=== PATIENT | female | born 1970 | race Caucasian/White ===

== ENCOUNTER 2018-08-02 09:28 | Emergency (ER) | payer MEDICARE, MEDICAID ==
[~2018-08-02] VITALS: Ht 162.6 cm; Wt 125.6 kg
[~2018-08-02 09:28] MED LIST: ALBU8HFA4 IH; ARIP15TA3 PO; BUPR300T52 PO; DULO20CA PO; PANT40TA2 PO; SERT50TA PO
--- NOTE | 2018-08-02 10:05 | NUR ---
47 years old female walking to er c/o right hip pain after falling, had x-ray at [facility], awaiting for ct will continue to monitor
[2018-08-02 10:51] LABS: *URINE HCG, QUAL NEGATIVE (NEGATIVE)
[2018-08-02 11:53] VITALS: BP 140/70
--- NOTE | 2018-08-02 11:54 | NUR ---
patient condition improved d/c home with instructions after care reviewed understood left er ambulatory with steady gait.
== END 2018-08-02 11:57 | disposition home or self-care (01) ==
LOC: ER 09:28
DX: M25.551 Pain in right hip (principal); J45.909 Unspecified asthma, uncomplicated; K21.9 Gastro-esophageal reflux disease without esophagitis; Z79.899 Other long term (current) drug therapy
CPT/HCPCS: 72192; 84703; A4663

== ENCOUNTER 2019-03-04 10:58 | Emergency (ER) | payer MEDICARE, MEDICAID ==
[~2019-03-04] VITALS: Ht 162.6 cm; Wt 140.6 kg
--- NOTE | 2019-03-04 11:46 | NUR ---
Patient discharged to home in stable conditon with brisk steady gait. Written and verbal after care instructions given to patient. Patient verbalized understanding & compliance of instructions.
== END 2019-03-04 11:48 | disposition home or self-care (01) ==
LOC: ER 10:58
DX: G25.3 Myoclonus (principal); G47.69 Other sleep related movement disorders; J44.9 Chronic obstructive pulmonary disease, unspecified; K21.9 Gastro-esophageal reflux disease without esophagitis; F31.9 Bipolar disorder, unspecified; Z88.8 Allergy status to other drugs, medicaments and biological substances; Z79.899 Other long term (current) drug therapy
CPT/HCPCS: A4663

== ENCOUNTER 2019-04-15 08:38 | Emergency (ER) | payer MEDICARE, MEDICAID ==
[~2019-04-15] VITALS: Ht 162.6 cm; Wt 140.6 kg
[2019-04-15] MEDS ORDERED: ALBUTEROL SULFATE 2.5 MG/ 0.5 ML NEBU NEB ONE (09:15)
[2019-04-15] MEDS ORDERED: ALBUTEROL SULFATE 2.5 MG/3 ML NEBU ONE (09:33)
--- NOTE | 2019-04-15 09:50 | NUR ---
Patient discharged to home in stable conditon. Written and verbal after care instructions given. Patient verbalizes understanding of instructions.
[2019-04-15 09:51] VITALS: BP 119/80
== END 2019-04-15 09:56 | disposition home or self-care (01) ==
LOC: ER 08:38
DX: J18.9 Pneumonia, unspecified organism (principal); J44.9 Chronic obstructive pulmonary disease, unspecified; K21.9 Gastro-esophageal reflux disease without esophagitis; F31.9 Bipolar disorder, unspecified; Z88.8 Allergy status to other drugs, medicaments and biological substances; Z79.899 Other long term (current) drug therapy
CPT/HCPCS: 71045; A4663

== ENCOUNTER 2019-04-18 16:24 | Emergency (ER) | payer MEDICARE, MEDICAID ==
[~2019-04-18] VITALS: Ht 162.6 cm; Wt 140.6 kg
[2019-04-18 17:18] VITALS: BP 154/89
--- NOTE | 2019-04-18 17:20 | NUR ---
Patient discharged to home in stable conditon. Written and verbal after care instructions given. Patient verbalizes understanding of instructions.
== END 2019-04-18 17:20 | disposition home or self-care (01) ==
LOC: ER 16:24
DX: J18.9 Pneumonia, unspecified organism (principal); J45.909 Unspecified asthma, uncomplicated; K21.9 Gastro-esophageal reflux disease without esophagitis; F31.9 Bipolar disorder, unspecified; Z88.8 Allergy status to other drugs, medicaments and biological substances; Z79.899 Other long term (current) drug therapy
CPT/HCPCS: A4663

== ENCOUNTER 2019-06-29 10:22 | Emergency (ER) | payer MEDICARE, MEDICAID ==
[~2019-06-29] VITALS: Ht 160 cm; Wt 132.4 kg
--- NOTE | 2019-06-29 10:39 | NUR ---
PT IS IN ROOM #1B. DR SANDOVAL EVALUATED THE PT.
[2019-06-29] MEDS ORDERED: IV NORMAL SALINE 500 ML BAG IV ONE (10:45)
[2019-06-29 10:56] LABS: BASOPHILS % (AUTO) 0.5 % (0.0-2.0); EOSINOPHILS # (AUTO) 0.2 K/uL (0.0-0.7); HEMATOCRIT 32.1 % (31.2-41.9); HEMOGLOBIN 10.2 g/dL (10.9-14.3); LYMPHOCYTES # (AUTO) 1.8 K/uL (20.0-40.0); LYMPHOCYTES % (AUTO) 21.4 % (20.5-51.5); MEAN CORPUSCULAR HEMOGLOBIN 25.8 uug (24.7-32.8); MEAN CORPUSCULAR HGB CONC 32 g/dL (32.3-35.6); MEAN CORPUSCULAR VOLUME 81.1 fL (75.5-95.3); MONOCYTES # (AUTO) 0.4 K/uL (2.0-10.0); MONOCYTES % (AUTO) 5.4 % (0.0-11.0); NEUTROPHILS # (AUTO) 5.8 K/uL (1.8-8.9); NEUTROPHILS % (AUTO) 70.7 % (38.5-71.5); PLATELET COUNT (AUTO) 405 K/uL (179-408); RED BLOOD CELL COUNT(AUTO) 3.95 MIL/uL (3.63-4.92); WHITE BLOOD COUNT (AUTO) 8.2 K/uL (3.8-11.8)
[2019-06-29 11:04] LABS: CREATININE 0.8 mg/dL (0.6-1.3); POTASSIUM 3.8 mmol/L (3.5-5.1)
--- NOTE | 2019-06-29 11:17 | NUR ---
PT WAS D/C'D TO HOME. D/C ISTRUCTIONS GIVEN TO THE PT.
[2019-06-29 11:18] VITALS: BP 133/78
== END 2019-06-29 11:22 | disposition home or self-care (01) ==
LOC: ER 10:25
DX: E86.0 Dehydration (principal); J45.909 Unspecified asthma, uncomplicated; K21.9 Gastro-esophageal reflux disease without esophagitis; F31.9 Bipolar disorder, unspecified; Z88.8 Allergy status to other drugs, medicaments and biological substances; Z79.899 Other long term (current) drug therapy
CPT/HCPCS: 36415; 85025; A4663; J7030

== ENCOUNTER 2019-11-25 08:29 | Emergency (ER) | payer MEDICARE, OTHER ==
[~2019-11-25] VITALS: Ht 162.6 cm; Wt 136.1 kg
--- NOTE | 2019-11-25 08:55 | NUR ---
PATIENT WAS MSE BY DR THOMSON IN ROOM 03A. PATIENT A & O X3.
--- NOTE | 2019-11-25 09:28 | NUR ---
DR THOMSON MADE PATIENT AWARE OF TEST RESULTS WILL BE DC HOME.
--- NOTE | 2019-11-25 09:34 | NUR ---
Patient discharged to home in stable condition. Written and verbal after care instructions given. Patient verbalizes understanding of instructions. Stressed follow up or return to ER for worsening s/s.
[2019-11-25 09:38] VITALS: BP 135/81
== END 2019-11-25 09:39 | disposition home or self-care (01) ==
LOC: ER 08:29
DX: R05 Cough (principal); J45.909 Unspecified asthma, uncomplicated; I69.392 Facial weakness following cerebral infarction; Z87.01 Personal history of pneumonia (recurrent); M79.7 Fibromyalgia; K21.9 Gastro-esophageal reflux disease without esophagitis
CPT/HCPCS: 71045; A4663